=== PATIENT | male | born 1955 | race Asian ===

== ENCOUNTER 2016-08-06 10:34 | Emergency (ER) | payer MEDICARE, MEDICAID ==
[~2016-08-06] VITALS: Ht 165.1 cm; Wt 70.3 kg
[2016-08-06 10:53] LABS: BASOPHILS # (AUTO) 0.1 /CMM (0.0-0.2); BASOPHILS % (AUTO) 1.1 % (0.0-2.0); DIFF TOTAL % 100 %; EOSINOPHILS # (AUTO) 0.2 /CMM (0.0-0.7); EOSINOPHILS % (AUTO) 3.2 % (0.0-6.0); HEMATOCRIT 23 % (39-51); HEMOGLOBIN 7.7 g/dL (13.5-17.5); LYMPHOCYTES # (AUTO) 1.1 /CMM (0.8-4.8); LYMPHOCYTES % (AUTO) 15.8 % (20.0-44.0); MEAN CORPUSCULAR HEMOGLOBIN 32 PG (26.0-33.0); MEAN CORPUSCULAR HGB CONC 33 g/dl (31.0-36.0); MEAN CORPUSCULAR VOLUME 96 fL (80-96); MONOCYTES # (AUTO) 0.5 /CMM (0.1-1.30); MONOCYTES % (AUTO) 7.7 % (2.0-12.0); NEUTROPHILS # (AUTO) 5.1 /CMM (1.8-8.9); NEUTROPHILS % (AUTO) 72.2 % (43.0-81.0); PLATELET COUNT (AUTO) 319 /CMM (150-450); RED BLOOD CELL COUNT(AUTO) 2.41 MIL/uL (4.5-6.0)
[2016-08-06 11:04] LABS: CALCIUM, SERUM 9.3 mg/dL (8.5-10.1); POTASSIUM 4.5 mmol/L (3.5-5.1)
[2016-08-06 11:08] LABS: CREATININE 8.1 mg/dL (0.6-1.3); INR 0.96 (0.87-1.13); PROTHROMBIN TIME 10.1 SECS (9.5-12.7)
[2016-08-06 11:14] LABS: TROPONIN I 0.071 ng/mL (0.00-0.056)
[2016-08-06] MEDS ORDERED: IV SET PRIMARY PUMP SET 1 EA INFUS.SET MC ONE (11:59)
[2016-08-06] MEDS ORDERED: VANCOMYCIN 1 GM in IV D5W 250 ML IV ONE (12:00)
[2016-08-06] MEDS ORDERED: PIPERACILLIN /TAZOBACTAM 2.25 G in IV D5W 50 ML IV ONE (12:00)
[2016-08-06 13:47] VITALS: BP 167/75
== END 2016-08-06 14:15 | disposition short-term general hospital (02) ==
LOC: ER 10:36
DX: I12.0 Hypertensive chronic kidney disease with stage 5 chronic kidney disease or end stage renal disease (principal); N18.6 End stage renal disease; Z99.2 Dependence on renal dialysis; I25.2 Old myocardial infarction; Z95.1 Presence of aortocoronary bypass graft
CPT/HCPCS: 36415; 71010; 80048; 83605; 83880; 84484; 85025; 85730; 87040 ×2; 87081; 93005; 96365; 96375; 99291; A4606; J2543; J3370; J7060 ×2; Z7610